=== PATIENT | male | born 1970 | race Two or more races ===

== ENCOUNTER 2023-12-24 10:20 | Outpatient (AMB) | payer OTHER, SELFPAY ==
[2023-12-24 11:25] VITALS: BMI 29.6
--- NOTE | 2023-12-24 11:25 | A.OFFVIS_ITS ---
VS Expanded 12/24/23 11:25 12/25/23 14:37 Height 5 ft 6 in 5 ft 6 in Weight 183 lb 3.266 oz 183 lb BMI 29.6 29.5 Intake Visit Reasons: Pre DM, Obesity Nutrition Presentation Details: Pt presents for MNT for PRe DM, obesity. Pt reports working on diet modifications, choosing lower fat foods. Reports trend of weight gain and increased BG during winter months due to sedentary lifestyle and increasing snacks and during summer months weight improves and bg improves. Food frequency fish: 0-1/wk fruits 0-1/d vegetables: 0-1/wk dairy 2-3 glasses/d starches > 20 /d physical activity : daily 6+ hrs/d etoh/smoking; ---- BS Monitoring Most Recent Diabetes Results: No Data to Display ZEG-Rblyhni-QjuJlien Equation Height: 5 ft 6 in Weight: 183 lb Resting Metabolic Rate: 1616.31 Calculated Activity Level: Mild Activity Calories Needed to Maintain Weight: 2222.43 Diagnosis Nutrition problem #1: food nutri know defi As related to (etiology) #1: diagnosis As evidenced by (sign/symptom) #1: knowledge deficit of diet Assessment & Plan Assessment & Plan (1) Pre-diabetes: Code(s): R73.03 - Prediabetes Category: Medical Plan: Wt: 83 Kg ( 01/05 ) Est kcal needs as per MSJ: 2200 (40% carb, 30% protein/fat) Est fluid needs as per 25-30 ml/d: 2500 Est prot per day as per 1 g/kg bw: 83 Recommend fiber intake : 8-10 g per day and gradually increase to 25-28 g per day for women and 35-38 g for men or as tolerated Recommend sodium intake per day : less than 2300 mg Educated patient on: ( R = reviewed V = verbalizes understanding N/R = needs review N/A = not applicable * Food sources of carbohydrate, adequate serving sizes and its role in various health conditions: R * Differences between complex carbohydrates a simple carbohydrates, role of fiber in diet: R * Lean protein sources of foods: R V NR * Differences between types of fats and role in diet (mono on saturated fat fatty acids, saturated fatty acids, trans fats): R V N/R * Food sources of sodium in salt and healthy modifications for heart health in kidney health: R V R/V * Vitamins and minerals: R V N/R * Healthy plate method concept: R * Physical activity: Benefits a precaution: R V * Hypoglycemia protocol (rule of 15): R V N/R * Dietary prevention of Hyperglycemia: R Patient Instructions: Follow healthy plate method choose whole grain foods Have water, low sugar beverages with meals/snacks see meal ideas as reference Coding Level of Care Code Nutr Indiv Intake (61311) Diagnoses Pre-diabetes R73.03 Time Spent (min) 30
[2023-12-25 14:37] VITALS: BMI 29.5
== END 2023-12-24 11:53 | disposition home or self-care (01) ==
PROVIDERS: Visit Provider Dietitian, Registered
DX: R73.03 Prediabetes (principal)

== ENCOUNTER → 2023-12-24 10:20 | Outpatient (BNVA) | payer OTHER, SELFPAY | PROVIDERS: Visit Provider Dietitian, Registered | DX: R73.03 Prediabetes (principal); E66.9 Obesity, unspecified; Z68.29 Body mass index [BMI] 29.0-29.9, adult; Z71.3 Dietary counseling and surveillance | CPT/HCPCS: 97802 ==

== ENCOUNTER 2024-03-24 09:53 | Outpatient (AMB) | payer OTHER, SELFPAY ==
[2024-03-24 10:09] VITALS: BMI 31.6
--- NOTE | 2024-03-24 10:09 | MHC.AMNUTRGE ---
VS Expanded 03/24/24 10:09 Height 5 ft 6 in Weight 195 lb 15.855 oz BMI 31.6 Intake Visit Reasons: Obesity/Confirmed Medication List - Last Reconciled 03/24/[address], LDN multivitamin 1 tab PO DAILY omega-3 fatty acids 1,000 mg PO DAILY Nutrition Presentation Details: Pt presents for MNT f/u for pre DM . Pt of Jonah COULTER, Lamont Vasquez MD Pt brought lab record from Mar 2024 , A1c at 6.7% (04/08), LDL 151 (04/08), tot chol 221 (04/08) Pt acknowledges he keeps sedentary during winter months and increases in food portions. He reports willingness and motivation to resume making diet modifications takes MVI omega 3 BS Monitoring Most Recent Diabetes Results: No Data to Display Assessment & Plan Assessment & Plan (1) Pre-diabetes: Code(s): R73.03 - Prediabetes Category: Medical Plan: Wt: 83 Kg ( 01/05 ), 89 kg (04/08) Est kcal needs as per MSJ: 2200 (40% carb, 30% protein/fat) Est fluid needs as per 25-30 ml/d: 2500 Est prot per day as per 1 g/kg bw: 83 Recommend fiber intake : 8-10 g per day and gradually increase to 25-28 g per day for women and 35-38 g for men or as tolerated Recommend sodium intake per day : less than 2300 mg Educated patient on: ( R = reviewed V = verbalizes understanding N/R = needs review N/A = not applicable Food sources of carbohydrate, adequate serving sizes and its role in various health conditions: R Differences between complex carbohydrates a simple carbohydrates, role of fiber in diet: R Lean protein sources of foods: R V Differences between types of fats and role in diet (mono on saturated fat fatty acids, saturated fatty acids, trans fats): R Food sources of sodium in salt and healthy modifications for heart health in kidney health: R V R/V Vitamins and minerals: R V Healthy plate method concept: R Physical activity: Benefits a precaution: R V Hypoglycemia protocol (rule of 15): R V N/R Dietary prevention of Hyperglycemia: R Patient Instructions: Engage in physical active walking 30 minutes /day - Reduce on alcohol Reduce on frequency of high fat foods and amount (cheese, pork, beef, fried foods , pastries and similar) see meal ideas following healthy plate method Coding Level of Care Code Nutr Indiv Subseq (62236) Diagnoses Pre-diabetes R73.03 Time Spent (min) 30
== END 2024-03-24 10:33 | disposition home or self-care (01) ==
PROVIDERS: Visit Provider Dietitian, Registered
DX: R73.03 Prediabetes (principal)

== ENCOUNTER → 2024-03-24 09:53 | Outpatient (BNVA) | payer OTHER, SELFPAY | PROVIDERS: Visit Provider Dietitian, Registered | DX: R73.03 Prediabetes (principal) | CPT/HCPCS: 97803 ==

== ENCOUNTER 2024-06-16 09:52 | Outpatient (AMB) | payer OTHER, SELFPAY ==
[2024-06-16 09:56] VITALS: BMI 31.0
--- NOTE | 2024-06-16 09:56 | A.OFFVIS_ITS ---
VS Expanded 06/16/24 09:56 Height 5 ft 6 in Weight 191 lb 12.835 oz BMI 31.0 Intake Visit Reasons: Obesity Medication List - Last Reconciled 06/16/[address], LDN amlodipine 5 mg PO DAILY multivitamin 1 tab PO DAILY omega-3 fatty acids 1,000 mg PO DAILY Nutrition Presentation Details: Pt presents for MNT f/u for Pre DM and hypercholesterolemia Pt reports doing well, working on reducing on pastries/sweets Maintaining physically active Food frequency fish : 1-2x/wk fruits : 1/d vex/wk starches> 20 dairy: choosing low fat options BS Monitoring Most Recent Diabetes Results: No Data to Display Assessment & Plan Assessment & Plan (1) Pre-diabetes: Code(s): R73.03 - Prediabetes Category: Medical Plan: Wt: 83 Kg ( 01/05 ), 89 kg (04/08), 87 kg (07/06) Est kcal needs as per MSJ: 2200 (40% carb, 30% protein/fat) Est fluid needs as per 25-30 ml/d: 2500 Est prot per day as per 1 g/kg bw: 83 Recommend fiber intake : 8-10 g per day and gradually increase to 25-28 g per day for women and 35-38 g for men or as tolerated Recommend sodium intake per day : less than 2300 mg Educated patient on: ( R = reviewed V = verbalizes understanding N/R = needs review N/A = not applicable * Food sources of carbohydrate, adequate serving sizes and its role in various health conditions: R * Differences between complex carbohydrates a simple carbohydrates, role of fiber in diet: R * Lean protein sources of foods: R V * Differences between types of fats and role in diet (mono on saturated fat fatty acids, saturated fatty acids, trans fats): R * Food sources of sodium in salt and healthy modifications for heart health in kidney health: R * Vitamins and minerals: R V * Healthy plate method concept: R , V * Physical activity: Benefits a precaution: R V * Hypoglycemia protocol (rule of 15): R V N/R * Dietary prevention of Hyperglycemia: R Patient Instructions: Continue working on reducing sugars/pastries/donuts similar which are also high in salt - choose a fruit instead, Reduce total carb per meal to 60-75 g , choosing whole grains beans, salads, vegetables: high fiber food choices) Coding Level of Care Code Nutr Indiv Subseq (44450) Diagnoses Pre-diabetes R73.03 Time Spent (min) 25
== END 2024-06-16 10:45 | disposition home or self-care (01) ==
LOC: HO.ENCR 09:53
PROVIDERS: PCP Physician Assistant Medical; Visit Provider Dietitian, Registered
DX: R73.03 Prediabetes (principal)

== ENCOUNTER → 2024-06-16 09:52 | Outpatient (BNVA) | payer OTHER, SELFPAY | PROVIDERS: PCP Physician Assistant Medical; Visit Provider Dietitian, Registered | DX: R73.03 Prediabetes (principal) | CPT/HCPCS: 97803 ==